=== PATIENT | male | born 1965 | race Two or more races ===

== ENCOUNTER 2019-06-27 21:36 | Inpatient (IN) | payer OTHER ==
[~2019-06-27] VITALS: Ht 172.7 cm; Wt 82.1 kg
--- NOTE | 2019-06-27 22:45 | NUR ---
PT AAOX4. AMBULATORY. PT C/O WITNESSED SYNCOPAL EPISODE AT WORK X1HR AGO, HX OF SYNCOPAL EPISODES. HEAD TRAUMA ON RIGHT FOREHEAD. C/O HEADACHE AND NAUSEA. PLACED ON MONITOR AND PULSE OX. PERRLA. PT SQUINTING EYES WHEN LOOKING TO THE RIGHT. WAITING FOR MD FOR EVAL.
[2019-06-27] MEDS ORDERED: ONDANSETRON 4 MG TAB.RAPDIS SL ONE (23:00)
[2019-06-27] MEDS ORDERED: ACETAMINOPHEN 325 MG TABLET PO ONE (23:00)
[2019-06-27] MEDS ORDERED: IV NS 0.9% 1,000 ML BAG IV ONE (23:00)
--- NOTE | 2019-06-27 23:00 | NUR ---
REPORT GIVEN TO DENNY KWAN FOR [facility]
[2019-06-27 23:21] LABS: BASOPHILS # (AUTO) 0.1 /CMM (0.0-0.2); BASOPHILS % (AUTO) 1.2 % (0.0-2.0); EOSINOPHILS % (AUTO) 3.8 % (0.0-6.0); HEMATOCRIT 41 % (39-51); HEMOGLOBIN 13.9 g/dL (13.5-17.5); LYMPHOCYTES # (AUTO) 1.3 /CMM (0.8-4.8); LYMPHOCYTES % (AUTO) 28.7 % (20.0-44.0); MEAN CORPUSCULAR HGB CONC 34 g/dl (31.0-36.0); MEAN CORPUSCULAR VOLUME 88 fL (80-96); MONOCYTES # (AUTO) 0.4 /CMM (0.1-1.30); MONOCYTES % (AUTO) 8.7 % (2.0-12.0); NEUTROPHILS # (AUTO) 2.6 /CMM (1.8-8.9); NEUTROPHILS % (AUTO) 57.6 % (43.0-81.0); PLATELET COUNT (AUTO) 274 /CMM (150-450); RED BLOOD CELL COUNT(AUTO) 4.64 MIL/uL (4.5-6.0); WHITE BLOOD COUNT (AUTO) 4.5 K/uL (4.3-11.0)
--- NOTE | 2019-06-27 23:25 | NUR ---
PT BROUGHT TO CT
[2019-06-27 23:38] LABS: ALANINE AMINOTRANSFERASE 30 U/L (12-78); ALBUMIN 3.7 g/dL (3.4-5.0); ALKALINE PHOSPHATASE 102 U/L (46-116); ASPARTATE AMINOTRANSFERASE 16 U/L (15-37); BILIRUBIN,DIRECT 0.1 mg/dL (0.0-0.2); BILIRUBIN,TOTAL 0.4 mg/dL (0.2-1.0); CALCIUM, SERUM 8.8 mg/dL (8.5-10.1); CARBON DIOXIDE 32 mmol/L (21-32); CHLORIDE 106 mmol/L (98-107); GLUCOSE 93 mg/dL (74-106); SODIUM SERUM 140 mmol/L (136-145); TOTAL PROTEIN, SERUM 6.8 g/dL (6.4-8.2); UREA NITROGEN, BLOOD 15 mg/dL (7-18)
--- NOTE | 2019-06-27 23:38 | NUR ---
PT BROUGHT BACK FROM CT
[2019-06-27] MEDS ORDERED: ONDANSETRON 4 MG TAB.RAPDIS ONE (23:41)
[2019-06-27] MEDS ORDERED: ACETAMINOPHEN ES 500 MG TABLET ONE (23:41)
--- NOTE | 2019-06-27 23:48 | NUR ---
spoke with mark, supervisor case loading for clinical information. clinicals faxed. verbal auth received for admission
--- NOTE | 2019-06-27 23:53 | NUR ---
Patient is resting comfortably in bed. Easily aroused. VSS.
[2019-06-28] MEDS ORDERED: MAG HYDROX/AL HYDROX/SIMETH 30 ML UDC PO PRN
[2019-06-28] MEDS ORDERED: MAGNESIUM HYDROXIDE 30 ML UDC PO PRN
[2019-06-28] MEDS ORDERED: ZOLPIDEM TARTRATE 5 MG TABLET PO PRN
[2019-06-28] MEDS ORDERED: Z GUARD REMEDY 2 OZ OINT TP PRN
[2019-06-28] MEDS ORDERED: ACETAMINOPHEN 325 MG TABLET PO PRN
[2019-06-28] MEDS ORDERED: ONDANSETRON HCL/PF 4 MG/2 ML VIAL IVP PRN
[2019-06-28] MEDS ORDERED: HYDROCODONE/APAP 5/325MG 1 EACH TABLET PO PRN
--- NOTE | 2019-06-28 00:13 | NUR ---
xray at bedside
--- NOTE | 2019-06-28 00:15 | NUR ---
pt ambulated to restroom
[2019-06-28 01:33] VITALS: BP 124/79
[2019-06-28 04:00] VITALS: BP 101/66
--- NOTE | 2019-06-28 06:07 | NUR ---
CHEESE SPECIALIST NOTES AWAKE & RESPONSIVE. NOT IN ANY DISTRESS. NO SOB NOTED. DENIES ANY PAIN OR DISCOMFORT AT THIS TIME. ON TELE SR @ 61 WITH IV-HL PATENT & INTACT. MONITORED ACCORDINGLY. CALL LIGHT WITHIN REACH. BED IN LOWEST POSITION. SR UP X 2 FOR SAFETY. WILL ENDORSE TO NEXT SHIFT.
[2019-06-28 06:38] LABS: EOSINOPHILS % (AUTO) 5.1 % (0.0-6.0); HEMATOCRIT 39 % (39-51); HEMOGLOBIN 13.3 g/dL (13.5-17.5); LYMPHOCYTES # (AUTO) 1.2 /CMM (0.8-4.8); LYMPHOCYTES % (AUTO) 34.6 % (20.0-44.0); MEAN CORPUSCULAR HGB CONC 34 g/dl (31.0-36.0); MEAN CORPUSCULAR VOLUME 88 fL (80-96); MONOCYTES # (AUTO) 0.4 /CMM (0.1-1.30); MONOCYTES % (AUTO) 10.7 % (2.0-12.0); NEUTROPHILS # (AUTO) 1.7 /CMM (1.8-8.9); NEUTROPHILS % (AUTO) 48.6 % (43.0-81.0); PLATELET COUNT (AUTO) 245 /CMM (150-450); RED BLOOD CELL COUNT(AUTO) 4.45 MIL/uL (4.5-6.0); WHITE BLOOD COUNT (AUTO) 3.6 K/uL (4.3-11.0)
[2019-06-28 07:08] LABS: THYROID STIMULATING HORMONE 1.543 uIU/mL (0.358-3.74)
[2019-06-28 07:13] LABS: CALCIUM, SERUM 8.6 mg/dL (8.5-10.1); CREATININE 0.9 mg/dL (0.6-1.3); MAGNESIUM 1.8 mg/dL (1.8-2.4); PHOSPHORUS 3.2 mg/dL (2.5-4.9); POTASSIUM 3.9 mmol/L (3.5-5.1)
--- NOTE | 2019-06-28 07:25 | NUR ---
INITIAL ASLEEP NO DISTRESS NOTED. NO SOB NOTED. DENIES ANY PAIN OR DISCOMFORT AT THIS TIME. ON TELE SR @ 61 WITH IV-HL PATENT & INTACT. MONITORED ACCORDINGLY. CALL LIGHT WITHIN REACH. BED IN LOWEST POSITION. SR UP X 2 FOR SAFETY. WILL CONTINUE TO MONITOR
[2019-06-28] MEDS ORDERED: IV NS 0.9% 1,000 ML IV PRN (08:25)
[2019-06-28 08:30] VITALS: BP 130/78
[2019-06-28] MEDS: NICOTINE PATCH (7MG) 7 MG PATCH.TD24 TD SCH (10:46)
[2019-06-28 16:16] VITALS: BP 116/70
--- NOTE | 2019-06-28 18:00 | NUR ---
Met with patient, he is alert and pleasant. He is divorce and lives alone in [place]. He works for [employer] and independent with adl[employer]. His car is park at his workplace and might need ride when discharge. Addendum: 06/28/19 at 2237 by SELINA SOLANO RN Amended: Links added.
--- NOTE | 2019-06-28 19:50 | NUR ---
LABORATORY TECHNICAL SPECIALIST NOTE: PATIENT RESTING IN BED. BREATHING EVEN AND UNLABORED, NO SOB NOTED. IV TO LAC IN PLACE. NO EPISODES OF SYNCOPE NOTED. BED LOCKED AND IN LOWEST POSITION, CALL LIGHT IN REACH, WILL CONTINUE TO MONITOR.
[2019-06-28 20:00] VITALS: BP 119/80
--- NOTE | 2019-06-28 23:15 | NUR ---
VICE CHAIRMAN NOTE: PATIENT WITH ORDERS FOR IV FLUIDS, BUT PATIENT REFUSES IV FLUIDS AT THIS TIME. INFORMED IMPORTANCE OF IV FLUIDS, BUT PATIENT CONTINUES TO REFUSE AT THIS TIME. WILL CONTINUE TO MONITOR.
[2019-06-29 00:29] VITALS: BP 126/86
[2019-06-29 04:13] VITALS: BP 128/79
--- NOTE | 2019-06-29 06:05 | NUR ---
SENIOR ACCOUNTING ASSOCIATE NOTE: PATIENT RESTING IN BED. BREATHING EVEN AND UNLABORED, NO SOB NOTED. IV TO LAC IN PLACE. TELE READING SR 80'S BED LOCKED AND IN LOWEST POSITION, CALL LIGHT IN REACH, WILL ENDORSE TO DAY NURSE TO CONTINUE WITH PLAN OF CARE.
--- NOTE | 2019-06-29 07:10 | NUR ---
SPIRITUAL COUNSELOR NOTES PATIENT IN BED EYES CLOSED EASY TO AROUSE. RESPOND TO VERBAL AND TACTILE STIMULI. NO ACUTE DISTRESS NOTED. BREATHING UNLABORED. IV ACCESS PATENT AND INTACT, NO REDNESS OR SWELLING NOTED. SAFETY MEASURE IN PLACE. CALL LIGHT WITHIN REACH. WILL CONTINUE TO MONITOR ACCORDINGLY.
[2019-06-29 08:00] VITALS: BP 122/85
[2019-06-29 08:35] VITALS: BP 109/76
[2019-06-29 08:36] VITALS: BP 118/83
[2019-06-29 08:38] VITALS: BP 99/62
--- NOTE | 2019-06-29 08:38 | NUR ---
TAFFY PULLER NOTES ORTHOSTATIC BP DONE DR CASTAÑEDA PRESENT ON THE FLOOR MADE AWARE WITH ORDERS TO GIVE IVF NS 500ML BOLUS X 1. NOTED AND CARRIED OUT.
[2019-06-29] MEDS ORDERED: IV NS 0.9% 500 ML IV ONE (09:00)
[2019-06-29 09:13] LABS: ALBUMIN 3.7 g/dL (3.4-5.0); BILIRUBIN,TOTAL 0.5 mg/dL (0.2-1.0); CALCIUM, SERUM 9.2 mg/dL (8.5-10.1); CREATININE 0.7 mg/dL (0.6-1.3); MAGNESIUM 1.9 mg/dL (1.8-2.4); PHOSPHORUS 3.3 mg/dL (2.5-4.9); POTASSIUM 4.3 mmol/L (3.5-5.1)
[2019-06-29] MEDS: NICOTINE PATCH (7MG) 7 MG PATCH.TD24 TD SCH (09:40)
--- NOTE | 2019-06-29 13:15 | NUR ---
MS RN NOTES PATIENT WENT HOME AGAINST MEDICAL ADVICE DESPITE OF EXPLANATION OF RISKS AND BENEFITS, VERBALIZED UNDERSTANDING. ALL BELONGINGS ACCOUNTED FOR AND SIGNED. PATIENT SIGNED AMA FORM AND LEFT HOSPITAL IN STABLE CONDITION. PATIENT AMBULATORY WITH STEADY GAIT. ALERT ORIENTED X 4. NO ACUTE DISTRESS NOTED. BREATHING UNLABORED. IV ACCESS REMOVED, NO BLEEDING, NO REDNESS, NO SWELLING NOTED. SKIN IS INTACT. ASSISTED TO THE LOBBY. PATIENT LEFT THE HOSPITAL VIA PRIVATE CAR.
--- NOTE | 2019-06-29 13:15 | NUR ---
MS RN NOTES TANIA GRAYSON MADE AWARE REGARDING DISCHARGE AMA.
== END 2019-06-29 14:40 | disposition left against medical advice (07) | DRG 204 ==
LOC: ER 21:36 → TELE 06-28 00:07 → MED 06-29 10:20
PROVIDERS: ADMIT Student in an Organized Health Care Education/Training Program; ATTEND Internal Medicine
DX: R55 Syncope and collapse (principal); G43.909 Migraine, unspecified, not intractable, without status migrainosus; M19.90 Unspecified osteoarthritis, unspecified site; Z72.0 Tobacco use; I10 Essential (primary) hypertension; R79.89 Other specified abnormal findings of blood chemistry; W18.30XA Fall on same level, unspecified, initial encounter; Y92.59 Other trade areas as the place of occurrence of the external cause; M50.30 Other cervical disc degeneration, unspecified cervical region; S16.1XXA Strain of muscle, fascia and tendon at neck level, initial encounter; S60.221A Contusion of right hand, initial encounter
CPT/HCPCS: 36415; 70450-TC; 71045-TC; 72125-TC; 73130-TC; 80048-TC; 80053-TC; 80061-TC; 80076-TC; 82962-TC; 83735-TC; 84100-TC; 84443-TC; 84484-TC; 85025-TC; 87081-TC; 93307-TC; 93880-TC; 97116-TC; 97530-TC; G0378; J7030; J7040; J7050; Q0162